=== PATIENT | female | born 1950 | race Caucasian/White ===

== ENCOUNTER → 2021-06-18 | Outpatient (CLI) | payer MEDICARE, OTHER ==
[~2021-06-18] MED LIST: CINNAMON500 MG PO; CIPRO500 MG PO; CLARINEX5 MG PO; KLONOPIN TAB 00.5 MG PO; LISINOPRIL-HCT1 EAC1 PO; MIRALAX17 GM PO; MOBIC15 MG PO; PRILOSEC OTC20 MG PO; PYRIDIUM100 MG PO; PYRIDIUM200 MG PO; RESTASIS 0.05%1 EACH OD; SYMBICORT 160-1 INHA INH; TOPAMAX100 MG PO; TYLENOL 500 MG500 MG PO; ULTRAM50 MG PO; VENTOLIN HFA 66.7 GM INH; VITAMIN C1000 MG PO; VITAMIN E400 UNI2 PO; ZANTAC300 MG PO
== END ==
LOC: EXRD 09:00
DX: M25.562 Pain in left knee (principal)
CPT/HCPCS: 73564

== ENCOUNTER 2021-07-14 12:55 | Emergency (ER) | payer MEDICARE, OTHER ==
[~2021-07-14 12:55] MED LIST changes: -MOBIC15 MG PO
[2021-07-14] MEDS ORDERED: MOBIC15 MG PO (15:54)
== END 2021-07-14 16:05 | disposition home or self-care (01) ==
LOC: ER1 12:55
DX: S40.011A Contusion of right shoulder, initial encounter (principal); S20.211A Contusion of right front wall of thorax, initial encounter; I10 Essential (primary) hypertension; J45.909 Unspecified asthma, uncomplicated; Z90.49 Acquired absence of other specified parts of digestive tract; Z90.89 Acquired absence of other organs; W18.30XA Fall on same level, unspecified, initial encounter; Y92.009 Unspecified place in unspecified non-institutional (private) residence as the place of occurrence of the external cause
CPT/HCPCS: 71111; 73030; 93005; 99283

== ENCOUNTER → 2021-10-08 | Outpatient (CLI) | payer MEDICARE, OTHER ==
[~2021-10-08] MED LIST changes: +MOBIC15 MG PO
== END ==
LOC: EXRD 07:46
DX: Z13.6 Encounter for screening for cardiovascular disorders (principal); Z00.00 Encounter for general adult medical examination without abnormal findings; M81.0 Age-related osteoporosis without current pathological fracture; Z82.49 Family history of ischemic heart disease and other diseases of the circulatory system; M85.88 Other specified disorders of bone density and structure, other site
CPT/HCPCS: 76706; 77080